=== PATIENT | male | born 1970 | race Caucasian/White ===

== ENCOUNTER 2017-09-17 05:40 | Day surgery (SDC) | payer OTHER ==
[~2017-09-17 05:40] MED LIST: VASOTEC10 MG PO
== END 2017-09-17 11:35 | disposition home or self-care (01) ==
LOC: AMB-ENDOS 05:40
DX: D12.8 Benign neoplasm of rectum (principal); K57.30 Diverticulosis of large intestine without perforation or abscess without bleeding

== ENCOUNTER 2019-07-07 05:48 | Day surgery (SDC) | payer OTHER ==
[2019-07-07] MEDS ORDERED: ZOCOR20 MG (16:55)
== END 2019-07-07 09:40 | disposition home or self-care (01) ==
LOC: AMB-ENDOS 05:48
DX: K62.1 Rectal polyp (principal); K63.5 Polyp of colon; K57.30 Diverticulosis of large intestine without perforation or abscess without bleeding; K64.1 Second degree hemorrhoids

== ENCOUNTER 2019-07-07 16:20 | Inpatient (IN) | payer OTHER ==
[~2019-07-07] VITALS: Ht 185.4 cm; Wt 94.3 kg
[2019-07-07] MEDS ORDERED: ZOCOR20 MG (16:55)
--- NOTE | 2019-07-07 16:55 | NUR ---
SE RECIBE PACIENTE ALERTA Y ORIENTADO REFIERE TENER RENE DOLOR ABDOMINAL , INDIC RODRIGUEZ TENIDO 5 EPISODIOS DE VOMITOS. PACIENTE REFIERE EL KOLBY DE HOY LE REALIZARON COLONOSCOPIA EL DR. MARVIN MCMAHAN. EL DR. MCMAHAN INDICA QUE VENGA A LA HUMBERTO DE EMERGENCIA.
--- NOTE | 2019-07-07 18:05 | NUR ---
SE ORIENTA PTE SOBRE EL TRATAMIENTO ORDENADO POR EL DR WATT PTE ALERTA Y CONCIENTE POR 3 SE REALIZAN MUESRAS DE LABORATORIO Y SE ADMINISTRAN MEDICAMENTO SUZI ORDENADO PTE SE MANTIENE EN OBSERVACION Y BAJO TRATAMIENTO.
--- NOTE | 2019-07-08 00:35 | NUR ---
SE RECIBE PTE DEL TURNO ANTERIOR,PTE MASCULINO DE 50 YRS, PTE ALERTA X 3, EN CAMA CON BARANDAS ELEVADAS POR BUI SEGURIDAD,IVF'S PATENTES Y ALESHA DE EDEMA Y/O ERITEMA EN AREA DE VENOPUNCION, PTE EN ESPERA DE CONSULTA A CIRUJANO,SE OBSERVARAN POR CAMBIOS EN BUI CONDICION DE ABHIJIT.
--- NOTE | 2019-07-08 05:13 | NUR ---
DR GIL INSERTA NGT # 18 EN FOSA NASAL AGGIE, SE CONECTA A SUCCION INTERMITENTE, SE ORIENTA PTE SOBRE EL PROCESO Y PTE REFIERE ENTENDER.
--- NOTE | 2019-07-08 07:43 | NUR ---
SE RECIBE PTE DLE TURNO ANTERIOR, ALERTA Y ORIENTADO X 3 ESFERAS, EN CAMA NIVEL MAS BAJO, KEITH DE IDENTIFICACION Y BARANDAS ELEVADAS POR PRECAUCION. SE OBSERVA CON BUEN PATRON RESPIRATORIO Y PIEL TIBIA AL TACTO. IV PATENTE Y ALESHA DE EDEMA O ERITEMA CON 0.9% NSS @150ML/HR. NGT EN FOSA NASAL RT EL MISMO PATENTE CONECTADO A SUCCION INTERMITENTE, AL MOMENTO RODRIGUEZ ELIMINADO APROXIMADAMENTE 25 ML COLOR MARILLO. PENDIENTE A REALIZAR CT CON CONTRASTE PO Y IV. SE MANTIENE A SUCCION NGT, SE INTENTA PASAR CONTRASTE POR EL MISMO SUZI ORDEN MEDICA DE DR GIL, PTE NO TOLERA EL MISMO Y CONTINUA VOMITANDO. DR GIL ORDENA NO PASAR MAS EL MISMO, POR LO QUE SE REALIZARA CT SOLO CON CONTRASTE IV. SE MATIENE NGT A SUCCION INTERMITENTE. CT NOTIFICADO A PERSONAL DE TURNO.
--- NOTE | 2019-07-08 08:32 | NUR ---
SE REALIZA CT CON CONTRASTE IV, PTE TOLERA EL MISMO.
--- NOTE | 2019-07-08 15:40 | NUR ---
SE RECIBE PTE ALERTA Y ORIENTADO EN LAS 3 ESFERAS EN CAMA CON BARANDAS ELEVADAS POR SEGURIDAD. BUEN PATRON RESPIRATORIO. RECIBIENDO IV'S 0.9NSS BAJANDO A 100ML/HR AREA DE VENPUNCION ALESHA DE EDEMA Y ERITEMA. NGT EN FOSA NASAL DERECHA CON SUCCION INTERMITENTE BAJA, PRESENTANDO 100ML DE RESIDUAL GASTRICO. PENDIENTE CONSULTA CON . SE MANTIENE EN OBSERVACION POR CAMBIOS EN CONDICION MEDICA.
--- NOTE | 2019-07-08 19:38 | NUR ---
SE LLAMA TERAPIA RESPIRATORIA PARA NOTIFICAR SPIROMETRIA INCENTIVA.
== END 2019-07-23 16:42 | disposition home or self-care (01) | DRG 389 ==
LOC: ER 16:20 → SEC-K 07-08 18:28 → SURG 07-08 18:28 → MEDI 07-08 21:13 → SURG 07-08 21:22 → SURH 07-18 12:43 → SURG 07-18 16:42
PROVIDERS: ADMIT Colon & Rectal Surgery
PROC: BW21Y0Z Computerized Tomography (CT Scan) of Abdomen and Pelvis using Other Contrast, Unenhanced and Enhanced (ICD-10-PCS; principal; 2019-07-08)
PROC: 02HV33Z Insertion of Infusion Device into Superior Vena Cava, Percutaneous Approach (ICD-10-PCS; 2019-07-08)
PROC: 3E0336Z Introduction of Nutritional Substance into Peripheral Vein, Percutaneous Approach (ICD-10-PCS; 2019-07-08)
PROC: BW21Y0Z Computerized Tomography (CT Scan) of Abdomen and Pelvis using Other Contrast, Unenhanced and Enhanced (ICD-10-PCS; 2019-07-15)
PROC: 0DH67UZ Insertion of Feeding Device into Stomach, Via Natural or Artificial Opening (ICD-10-PCS; 2019-07-16)
PROC: 3E0G76Z Introduction of Nutritional Substance into Upper GI, Via Natural or Artificial Opening (ICD-10-PCS; 2019-07-16)
DX: K56.690 Other partial intestinal obstruction (principal); E44.0 Moderate protein-calorie malnutrition; A04.72 Enterocolitis due to Clostridium difficile, not specified as recurrent; K57.30 Diverticulosis of large intestine without perforation or abscess without bleeding; K40.90 Unilateral inguinal hernia, without obstruction or gangrene, not specified as recurrent; K29.00 Acute gastritis without bleeding